=== PATIENT | male | born 1970 | race Caucasian/White ===

== ENCOUNTER → 2023-02-03 | Outpatient (CLI) | payer BC ==
--- NOTE | 2023-02-03 09:19 | CTL ---
EXAMINATION TYPE: CT Low Dose Lung DATE OF EXAM ORDERED: 02/03/2023 HISTORY: 52-year-old male Z87.891 personal hx tobacco use. 20 pack-year history, current smoker. Lung cancer screening CT DLP: 159.[address] CTDI: 4.30 mGy Automated exposure control for dose reduction was used. SCREENING VISIT: Baseline COMPARISON: None TECHNIQUE: Low dose computed tomography scan was performed through the chest with coronal and sagitta l reconstructions. CT DIAGNOSTIC QUALITY: Satisfactory FINDINGS: Heart is upper limits of normal in size without pericardial effusion. 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 Conventional arch vessel branching anatomy. Mildly enlarged caliber to the main right and the pulmonary arteries measuring up to 2.8 cm suggestin g underlying pulmonary arterial hypertension. No thoracic lymphadenopathy by CT size criteria. Mild to moderate centrilobular emphysema. Scattered septal interstitial thickening especially in the upper lungs. Additional strandy areas of scarring and atelectasis at the posterior lung bases. Scattered 5 mm and smaller bilateral pulmonary nodules are present, axial images 54, 66, 70, 77, 82, 87, 88, 93, 147, and 153. Largest measuring 6 mm right upper lobe, axial image 70. No consolidation or pleural effusion. Visualized upper abdomen shows low attenuation of the hepatic parenchyma suggesting fatty infiltratio n. 6 mm gallstone within a collapsed gallbladder. Bones: DISH lower thoracic spine. IMPRESSION: 1. LungRADS 3, probably benign. Scattered bilateral pulmonary nodules measuring 5 mm and smaller on b aseline screening. Largest measures 6 mm in the right upper lobe. 2. COPD with mild to moderate emphysema. Mild interstitial scarring. Recommend smoking cessation. 3. Correlate for underlying pulmonary artery hypertension. 4. Mild aneurysm ascending aorta 4.2 [address] LUNG RAD AND CT CHEST RECOMMENDATION: Lung-Rad 3 Probably Benign: 6 month follow-up LDCT.
== END | disposition home or self-care (01) ==
LOC: RADCTMAIN 06:40
PROVIDERS: ATTEND Family Medicine
DX: Z12.2 Encounter for screening for malignant neoplasm of respiratory organs (principal); F17.210 Nicotine dependence, cigarettes, uncomplicated; J43.2 Centrilobular emphysema; R91.8 Other nonspecific abnormal finding of lung field; K76.0 Fatty (change of) liver, not elsewhere classified; I71.21 Aneurysm of the ascending aorta, without rupture; J98.4 Other disorders of lung
CPT/HCPCS: 71271

== ENCOUNTER 2024-08-13 21:48 | Inpatient (IN) | payer BC ==
[2024-08-13 21:51] VITALS: TEMP 97
--- NOTE | 2024-08-13 21:52 | ED ---
Lower Extremity Injury HPI - General Chief Complaint: Trauma Stated Complaint: Fall, Left Leg injury Time Seen by Provider: 08/13/24 21:51 Source: patient, EMS, RN notes reviewed, old records reviewed Limitations: no limitations - History of Present Illness Initial Comments: This is a 54-year-old male to the ER today. This male presents today for evaluation of fall, patient does admit to positive alcohol intoxication today. Tripped over a box in his garage landing on his left leg sustaining open fracture of the left leg and presents by EMS with significant bleeding severe pain to the left leg patient denies any other complaints pain or injury MD Complaint: leg injury, ankle injury, fall, other (Left) -: hour(s) Injury: Ankle: Left Type of Injury: eversion, laceration Place: home Severity: severe Severity scale (1-10): 10 Improves With: nothing Worsens With: nothing Context: fall, direct blow, walking Associated Symptoms: snap/pop sensation, unable to bear weight Treatments Prior to Arrival: bandage - Related Data Allergies Allergy/AdvReac Type Severity Reaction Status Date / Time No Known Allergies Allergy Verified 08/13/24 21:52 Review of Systems ROS Statement: Those systems with pertinent positive or pertinent negative responses have been documented in the HPI. ROS Other: All systems not noted in ROS Statement are negative. Past Medical History Past Medical History: Unable to Obtain Past Surgical History: Unable to Obtain General Exam General appearance: alert, in no apparent distress Head exam: Present: atraumatic, normocephalic, normal inspection Eye exam: Present: normal appearance, PERRL, EOMI. Absent: scleral icterus, conjunctival injection, periorbital swelling ENT exam: Present: normal exam, mucous membranes moist Neck exam: Present: normal inspection. Absent: tenderness, meningismus, lymphadenopathy Respiratory exam: Present: normal lung sounds bilaterally. Absent: respiratory distress, wheezes, rales, rhonchi, stridor Cardiovascular Exam: Present: regular rate, normal rhythm, normal heart sounds. Absent: systolic murmur, diastolic murmur, rubs, gallop, clicks GI/Abdominal exam: Present: soft, normal bowel sounds. Absent: distended, tenderness, guarding, rebound, rigid Extremities exam: Present: normal inspection, full ROM, normal capillary refill. Absent: tenderness, pedal edema, joint swelling, calf tenderness Back exam: Present: normal inspection Neurological exam: Present: alert, oriented X3, CN II-XII intact Psychiatric exam: Present: normal affect, normal mood Skin exam: Present: warm, dry, intact, normal color. Absent: rash Course Vital Signs 08/13/24 08/13/24 08/13/24 21:49 21:57 22:02 Temperature 97.0 F L Pulse Rate 95 100 99 Pulse Rate [ Left Supine Organic Chemistry Professor ] Respiratory 15 24 18 Rate Blood Pressure 109/61 103/64 105/80 Blood Pressure [Left Arm Supine] O2 Sat by Pulse 94 L 100 100 Oximetry 08/13/24 08/13/24 08/13/24 22:05 22:07 22:13 Temperature Pulse Rate 98 98 Pulse Rate [ Left Supine Organic Chemistry Professor ] Respiratory 14 16 12 Rate Blood Pressure 101/82 105/67 Blood Pressure [Left Arm Supine] O2 Sat by Pulse 90 L 90 L Oximetry 08/13/24 08/13/24 08/13/24 22:22 22:37 22:52 Temperature Pulse Rate Pulse Rate [ 98 97 97 Left Supine Organic Chemistry Professor ] Respiratory 17 17 16 Rate Blood Pressure Blood Pressure 104/65 123/73 131/99 [Left Arm Supine] O2 Sat by Pulse 98 91 L 97 Oximetry 08/13/24 08/13/24 08/13/24 23:07 23:15 23:22 Temperature Pulse Rate 90 Pulse Rate [ 93 93 Left Supine Organic Chemistry Professor ] Respiratory 15 16 13 Rate Blood Pressure 138/93 Blood Pressure 138/93 138/93 [Left Arm Supine] O2 Sat by Pulse 97 97 97 Oximetry 08/13/24 08/13/24 08/14/24 23:30 23:45 00:47 Temperature Pulse Rate 92 98 95 Pulse Rate [ Left Supine Organic Chemistry Professor ] Respiratory 16 15 14 Rate Blood Pressure 139/77 116/76 98/87 Blood Pressure [Left Arm Supine] O2 Sat by Pulse 97 97 95 Oximetry - Reevaluation(s) Reevaluation #1: 08/13/24 22:24 Records reviewed Reevaluation #2: 08/13/24 22:25 Patient symptoms are improved here in the ER after significant amount of pain me dication and reduction of left ankle fracture Reevaluation #3: 08/14/24 00:05 Patient informed of results and questions answered Reevaluation #4: Was pt. sent in by a medical professional or institution (ALYSON Good, JIGGER MACHINE OPERATOR, urgent care, hospital, or half-way...) When possible be specific @ -no Did you speak to anyone other than the patient for history (EMS, parent, family, police, friend...)? What history was obtained from this source @ -no Did you review nursing and triage notes (agree or disagree)? Why? @ -agree Are old charts reviewed (outside hosp., previous admission, EMS record, old EKG, old radiological studies, urgent care reports/EKG's, half-way records)? Report findings @ -yes Differential Diagnosis (chest pain, altered mental status, abdominal pain women, abdominal pain men, vaginal bleeding, weakness, fever, dyspnea, syncope, headache, dizziness, GI bleed, back pain, seizure, CVA, palpatations, mental health, musculoskeletal)? @ -prior EKG interpreted by me (3pts min.). @ -yes X-rays interpreted by me (1pt min.). @ -yes for ankle fracture CT interpreted by me (1pt min.). @ -Yes trimalleolar ankle fracture U/S interpreted by me (1pt. min.). @ -no What testing was considered but not performed or refused? (CT, X-rays, U/S, labs)? Why? @ -none What meds were considered but not given or refused? Why? @ -none Did you discuss the management of the patient with other professionals (professionals i.e. ALYSON Good, JIGGER MACHINE OPERATOR, lab, RT, psych nurse, criminal justice social worker, information resources manager, teacher, health officer, transplant case manager)? Give summary @ -no Was smoking cessation discussed for >3mins.? @ -no Was critical care preformed (if so, how long)? @ -yes31 Were there social determinants of health that impacted care today? How? (H omelessness, low income, unemployed, alcoholism, drug addiction, transportation, low edu. Level, literacy, decrease access to med. care, long term, rehab)? @ -none Was there de-escalation of care discussed even if they declined (Discuss DNR or withdrawal of care, Hospice)? DNR status @ -no What co-morbidities impacted this encounter? (DM, HTN, Smoking, COPD, CAD, Cancer, CVA, ARF, Chemo, Hep., AIDS, mental health diagnosis, sleep apnea, morbid obesity)? @ -none Was patient admitted / discharged? Hospital course, mention meds given and route, prescriptions, significant lab abnormalities, going to OR and other pertinent info. @ - 54 Male to the ER for evaluation today. Patient presents today for evaluation of significant left ankle pain after fall with left ankle fracture dislocation open cleaned and reduced here in the ER placed in splint patient will be transferred to [facility] for definitive care transferred Undiagnosed new problem with uncertain prognosis? @ -no Drug Therapy requiring intensive monitoring for toxicity (Heparin, Nitro, Insulin, Cardizem)? @ -no Were any procedures done? @ -Conscious sedation and procedure were, fracture reduction Diagnosis/symptom? @ -Patient has a fall with left ankle with open fracture dislocation Acute, or Chronic, or Acute on Chronic? @ -Acute Uncomplicated (without systemic symptoms) or Complicated (systemic symptoms)? @ -Complicated Side effects of treatment? @ -no Exacerbation, Progression, or Severe Exacerbation? @ -exacerbation Poses a threat to life or bodily function? How? (Chest pain, [place], [place], pneumonia, PE, COPD, DKA, ARF, appy, cholecystitis, CVA, Diverticulitis, Homicidal, Suicidal, threat to staff... and all critical care pts) @ -yes with significant open fracture - Consultations Consultation #1: Orthopedics on-call who requested CT scan left ankle, evaluation of CT scan and recommends transfer Consultation #2: With [facility] accepts the patient for transfer Procedures - Orthopedic Fracture Reduction Fracture #1 Consent Obtained: verbal consent Side: left Fracture Reduction Location: tibia, fibula Analgesia: procedural sedation Technique: direct manipulation Post Reduction X-rays Demonstrate: anatomical reduction Post-Reduction Neuro Exam: intact Post-Reduction Vascular Exam: intact Splint Applied: Yes Patient Tolerated Procedure: well - Procedural Sedation *Procedural Sedation Start Time: 22:00 *Procedural Sedation Stop Time: 23:00 *Risks,benefits, and alternative therapies discussed?: Yes *Patient indicates understanding of risk/benefit discussion?: Yes *Indications: fracture/dislocation reduction *Previous Adverse Reaction to Anesthesia/Sedation?: No *ASA Class: III *Mallampati Airway Score: 3 Preparation: phototypesetting equipment monitor applied, pulse oximeter, capnometry used Midazolam: IV Midazolam Dose: 5 IV Propofol Dose (mgs): 50 Complications: none Patient Tolerated Procedure: well Medical Decision Making - Medical Decision Making 54 Male to the ER for evaluation today. Patient presents today for evaluation of significant left ankle pain after fall with left ankle fracture dislocation open cleaned and reduced here in the ER placed in splint patient will be transferred to [facility] for definitive care - Lab Data Result diagrams: 08/13/24 22:16 08/13/24 22:16 Lab Results 08/13/24 08/13/24 08/13/24 Range/Units 22:07 22:12 22:16 WBC 9.4 (3.8-10.6) k/uL RBC 4.74 (4.30-5.90) m/uL Hgb 14.6 (13.0-17.5) gm/dL Hct 46.3 (39.0-53.0) % MCV 97.7 (80.0-100.0) fL MCH 30.8 (25.0-35.0) pg MCHC 31.5 (31.0-37.0) g/dL RDW 12.7 (11.5-15.5) % Plt Count 292 (150-450) k/uL MPV 6.7 Neutrophils % 66 % Lymphocytes % 20 % Monocytes % 8 % Eosinophils % 2 % Basophils % 0 % Neutrophils # 6.2 (1.3-7.7) k/uL Lymphocytes # 1.8 (1.0-4.8) k/uL Monocytes # 0.8 (0-1.0) k/uL Eosinophils # 0.2 (0-0.7) k/uL Basophils # 0.0 (0-0.2) k/uL PT (10.0-12.5) sec INR (<1.2) APTT (22.0-30.0) sec Sodium (137-145) mmol/L Potassium (3.5-5.1) mmol/L Chloride (98-107) mmol/L Carbon Dioxide (22-30) mmol/L Anion Gap mmol/L BUN (9-20) mg/dL Creatinine (0.66-1.25) mg/dL Est GFR (CKD-EPI)AfAm (>60 ml/min/1.73 sqM) Est GFR (CKD-EPI)NonAf (>60 ml/min/1.73 sqM) Glucose (74-99) mg/dL Calcium (8.4-10.2) mg/dL Total Bilirubin (0.2-1.3) mg/dL AST (17-59) U/L ALT (4-49) U/L Alkaline Phosphatase (38-126) U/L Troponin I (0.000-0.034) ng/mL Total Protein (6.3-8.2) g/dL Albumin (3.5-5.0) g/dL Serum Alcohol mg/dL Blood Type A Positive Blood Type Confirm A Positive Blood Type Recheck No Previous Record Bld Type Recheck Status CABO Indicated Antibody Screen NEGATIVE Spec Expiration Date 08/16/2024 - 230608/13/24 08/13/24 08/13/24 Range/Units 22:16 22:16 22:16 WBC (3.8-10.6) k/uL RBC (4.30-5.90) m/uL Hgb (13.0-17.5) gm/dL Hct (39.0-53.0) % MCV (80.0-100.0) fL MCH (25.0-35.0) pg MCHC (31.0-37.0) g/dL RDW (11.5-15.5) % Plt Count (150-450) k/uL MPV Neutrophils % % Lymphocytes % % Monocytes % % Eosinophils % % Basophils % % Neutrophils # (1.3-7.7) k/uL Lymphocytes # (1.0-4.8) k/uL Monocytes # (0-1.0) k/uL Eosinophils # (0-0.7) k/uL Basophils # (0-0.2) k/uL PT 11.3 (10.0-12.5) sec INR 1.0 (<1.2) APTT 24.9 (22.0-30.0) sec Sodium 130 L (137-145) mmol/L Potassium 3.7 (3.5-5.1) mmol/L Chloride 97 L (98-107) mmol/L Carbon Dioxide 18 L (22-30) mmol/L Anion Gap 15 mmol/L BUN 8 L (9-20) mg/dL Creatinine 0.94 (0.66-1.25) mg/dL Est GFR (CKD-EPI)AfAm >90 (>60 ml/min/1.73 sqM) Est GFR (CKD-EPI)NonAf >90 (>60 ml/min/1.73 sqM) Glucose 108 H (74-99) mg/dL Calcium 8.6 (8.4-10.2) mg/dL Total Bilirubin 0.7 (0.2-1.3) mg/dL AST 37 (17-59) U/L ALT 48 (4-49) U/L Alkaline Phosphatase 92 (38-126) U/L Troponin I <0.012 (0.000-0.034) ng/mL Total Protein 6.5 (6.3-8.2) g/dL Albumin 3.9 (3.5-5.0) g/dL Serum Alcohol 166 mg/dL Blood Type Blood Type Confirm Blood Type Recheck Bld Type Recheck Status Antibody Screen Spec Expiration Date - EKG Data -: EKG Interpreted by Me (EKG is sinus 89 NV 178 QRS 88 QTc 384) - Radiology Data Radiology results: report reviewed (Left ankle shows fracture dislocation), i mage reviewed Critical Care Time Critical Care Time: Yes Total Critical Care Time: 31 Disposition Clinical Impression: Open left ankle fracture, Fracture dislocation of left ankle, Trimalleolar fracture of left ankle, Fall Disposition: OTHER INSTITUTION NOT DEFINED Condition: Serious Is patient prescribed a controlled substance at d/c from ED?: No
[2024-08-13] MEDS: HYDROmorphone 1 MG/ML 1 ML SYRINGE IVP STA (21:58)
[2024-08-13] MEDS: SODIUM CHLORIDE 0.9% 1,000 ML IV STA ×2 (21:58→22:40)
[2024-08-13] MEDS: MIDAZOLAM 1 MG/ML 5 ML VIAL IV STA (21:59)
[2024-08-13] MEDS: PROPOFOL 10 MG/ML 20 ML VIAL IV STA (22:03)
[2024-08-13] MEDS: NALOXONE 0.4 MG/ML 1 ML VIAL IVP STA (22:13)
[2024-08-13] MEDS ORDERED: NALOXONE 0.4 MG/ML 1 ML VIAL IV PRN (22:28)
[2024-08-13] MEDS ORDERED: ONDANSETRON 4 MG/2 ML VIAL IVP PRN (22:28)
[2024-08-13] MEDS: ONDANSETRON 4 MG/2 ML VIAL IVP STA (22:29)
[2024-08-13] MEDS: DIPH,PERTUS(ACELL)TETVAC-LF 0.5 ML VIAL IM ONE (22:38)
[2024-08-13] MEDS: SODIUM CHLORIDE 0.9% 1,000 ML IV SCH (22:43)
[2024-08-13] MEDS: HYDROmorphone 1 MG/ML 1 ML SYRINGE IVP PRN (22:48)
[2024-08-13 22:49] LABS: Basophils % (A) 0 %; Eosinophils # (A) 0.2 k/uL (0-0.7); Eosinophils % (A) 2 %; HCT 46.3 % (39.0-53.0); HGB 14.6 gm/dL (13.0-17.5); Lymphocytes # (A) 1.8 k/uL (1.0-4.8); Lymphocytes % (A) 20 %; MCH 30.8 pg (25.0-35.0); MCHC 31.5 g/dL (31.0-37.0); MCV 97.7 fL (80.0-100.0); Mean Platelet Volume 6.7; Monocytes # (A) 0.8 k/uL (0-1.0); Monocytes % (A) 8 %; Neutrophils # (A) 6.2 k/uL (1.3-7.7); Neutrophils % (A) 66 %; Platelet Count 292 k/uL (150-450); RBC 4.74 m/uL (4.30-5.90); RDW 12.7 % (11.5-15.5); WBC 9.4 k/uL (3.8-10.6)
[2024-08-13 23:00] LABS: ALT 48 U/L (4-49); AST 37 U/L (17-59); African American GFR (CKD) >90 (>60 ml/min/1.73 sqM); Albumin 3.9 g/dL (3.5-5.0); Alkaline Phosphatase 92 U/L (38-126); Anion Gap 15 mmol/L; Blood Urea Nitrogen 8 mg/dL (9-20); Calcium 8.6 mg/dL (8.4-10.2); Carbon Dioxide 18 mmol/L (22-30); Chloride 97 mmol/L (98-107); Glucose 108 mg/dL (74-99); Non-African American GFR(CKD) >90 (>60 ml/min/1.73 sqM); Potassium 3.7 mmol/L (3.5-5.1); Sodium 130 mmol/L (137-145); Total Bilirubin 0.7 mg/dL (0.2-1.3); Total Protein 6.5 g/dL (6.3-8.2)
[2024-08-13 23:04] LABS: Partial Thromboplastin Time 24.9 sec (22.0-30.0); Prothrombin Time 11.3 sec (10.0-12.5)
[2024-08-13 23:12] LABS: Alcohol 166 mg/dL
--- NOTE | 2024-08-14 00:16 | XR ---
EXAM: XR Left Ankle Complete, 3 or More Views CLINICAL HISTORY: ITS.REASON XR Reason: trauma TECHNIQUE: Frontal, lateral and oblique views of the left ankle. COMPARISON: CT left ankle, 08/13/24 FINDINGS: Bones/joints: Acute trimalleolar fracture of the ankle, mildly displaced, status post reduction and splinting. No dislocation. Soft tissues: Soft tissue swelling. IMPRESSION: Acute trimalleolar fracture of the ankle, mildly displaced, status post reduction and splinting.
[2024-08-14 00:48] VITALS: BP 98/87; PULSE 95; RESP 14
--- NOTE | 2024-08-14 01:08 | CT ---
EXAM: CT Left Lower Extremity Without Intravenous Contrast, Ankle CLINICAL HISTORY: ITS.REASON CT Reason: pain TECHNIQUE: Axial computed tomography images of the left ankle without intravenous contrast. CTDI is 3.4 mGy and DLP is 112.9 mGy-cm. This CT exam was performed using one or more of the following dose reduction techniques: automated exposure control, adjustment of the mA and/or kV according to patient size, and/or use of iterative reconstruction technique. COMPARISON: No relevant prior studies available. FINDINGS: Bones/joints: Mildly displaced oblique distal fibular fracture extending to the plafond. Nondisplaced posterior malleolus fracture. Mildly displaced transverse medial malleolus fracture. Some displaced cortical fragments within the medial soft tissues. No dislocation. Possible entrapment of the tibialis posterior tendon at the level of the medial malleolus fracture. Soft tissues: Soft tissue swelling and subcutaneous gas, raising the possibility of open fractures. IMPRESSION: 1. Mildly displaced oblique distal fibular fracture extending to the plafond. 2. Nondisplaced posterior malleolus fracture. 3. Mildly displaced transverse medial malleolus fracture. Some displaced cortical fragments within the medial soft tissues. Possible entrapment of the tibialis posterior tendon at the level of the medial malleolus fracture (axial image 51). 4. Soft tissue swelling and subcutaneous gas, raising the possibility of open fractures.
== END 2024-08-14 00:54 | disposition short-term general hospital (02) | DRG 563 ==
LOC: EC 21:48 → 4SSUR 22:29
PROVIDERS: ADMIT Internal Medicine; ATTEND Internal Medicine
PROC: 0QSHXZZ Reposition Left Tibia, External Approach (ICD-10-PCS; principal; 2024-08-13)
PROC: 0QSKXZZ Reposition Left Fibula, External Approach (ICD-10-PCS; 2024-08-13)
PROC: 0QSHXZZ Reposition Left Tibia, External Approach (ICD-10-PCS; 2024-08-13)
DX: S82.852B Displaced trimalleolar fracture of left lower leg, initial encounter for open fracture type I or II (principal); F10.129 Alcohol abuse with intoxication, unspecified; W01.0XXA Fall on same level from slipping, tripping and stumbling without subsequent striking against object, initial encounter; Y92.009 Unspecified place in unspecified non-institutional (private) residence as the place of occurrence of the external cause; Y90.6 Blood alcohol level of 120-199 mg/100 ml
CPT/HCPCS: 27818; 80053; 80320; 84484; 85025; 85610; 85730; 86850; 86900; 86901; 90471; 90715; 93005; 96374; 96375; 96376; 99152; 99153; 99291